=== PATIENT | male | born 1945 | race Two or more races ===

== ENCOUNTER 2016-08-16 22:54 | Inpatient (IN) | payer MEDICAID, MEDICARE ==
[~2016-08-16] VITALS: Ht 172.7 cm; Wt 88.9 kg
--- NOTE | 2016-08-16 23:07 | NUR ---
PT A/OX4 BREATHING EFFORTLESSLY ON ROOM AIR, PT STATES HE STARTED HAVING CHEST PAIN 35 MINUTES AGO, PT WAS GIVEN 162MG OF ASPIRIN AND 3 SPRAYS OF NITRO PRIOR TO ARRIVAL, PT ALSO STATES HE TOOK 4 BABY ASPIRIN PRIOR TO EMS, PT FAMILY AT BEDSIDE, PT STATES THE PAIN IS NOW A 2 OUT OF 10, EKG DONE, IOV PLACED PRIRO TO ARRIVAL LABS DRAWN, MD MADE AWARE WILL CONTINUE TO MONTIOR.
[2016-08-16 23:29] LABS: BASOPHILS % (AUTO) 0.3 % (0.0-2.0); EOSINOPHILS # (AUTO) 0.1 /CMM (0.0-0.7); EOSINOPHILS % (AUTO) 0.5 % (0.0-6.0); HEMATOCRIT 47 % (39-51); HEMOGLOBIN 15.3 g/dL (13.5-17.5); LYMPHOCYTES # (AUTO) 0.7 /CMM (0.8-4.8); LYMPHOCYTES % (AUTO) 4.4 % (20.0-44.0); MEAN CORPUSCULAR HEMOGLOBIN 29 PG (26.0-33.0); MEAN CORPUSCULAR HGB CONC 33 g/dl (31.0-36.0); MEAN CORPUSCULAR VOLUME 87 fL (80-96); MONOCYTES # (AUTO) 0.8 /CMM (0.1-1.30); MONOCYTES % (AUTO) 5.6 % (2.0-12.0); NEUTROPHILS # (AUTO) 13.5 /CMM (1.8-8.9); NEUTROPHILS % (AUTO) 89.2 % (43.0-81.0); PLATELET COUNT (AUTO) 178 /CMM (150-450); RED BLOOD CELL COUNT(AUTO) 5.39 MIL/uL (4.5-6.0); WHITE BLOOD COUNT (AUTO) 15.1 K/uL (4.3-11.0)
[2016-08-16 23:40] LABS: CALCIUM, SERUM 9.5 mg/dL (8.5-10.1); CARBON DIOXIDE 29 mmol/L (21-32); CHLORIDE 101 mmol/L (98-107); CREATININE 1.1 mg/dL (0.6-1.3); GFR 67 mL/min (>60); GLUCOSE 301 mg/dL (74-106); POTASSIUM 4.3 mmol/L (3.5-5.1); SODIUM SERUM 136 mmol/L (136-145); UREA NITROGEN, BLOOD 20 mg/dL (7-18)
[2016-08-16 23:43] LABS: INR 1.06 (0.87-1.13); PROTHROMBIN TIME 11.4 SECS (9.5-12.7)
[2016-08-16 23:47] LABS: TROPONIN I < 0.017 ng/mL (0.00-0.056)
[2016-08-16] MEDS ORDERED: GLIM4TAB2 PO (23:53)
[2016-08-16] MEDS ORDERED: MONT10TA22 PO (23:53)
[2016-08-16] MEDS ORDERED: SENN8.6T22 PO (23:53)
[2016-08-16] MEDS ORDERED: ALPR0.5T8 PO (23:53)
[2016-08-16] MEDS ORDERED: METF500T4 PO (23:53)
[2016-08-16] MEDS ORDERED: SITA50TA PO (23:53)
[2016-08-16] MEDS ORDERED: LORA10TA7 PO (23:53)
[2016-08-16] MEDS ORDERED: CALC-838 PO (23:53)
[2016-08-16] MEDS ORDERED: ATOR20TA PO (23:53)
[2016-08-16] MEDS ORDERED: LISI10TA5 PO (23:53)
[2016-08-16 23:55] LABS: ALANINE AMINOTRANSFERASE 33 U/L (12-78); ALBUMIN 4.1 g/dL (3.4-5.0); ALKALINE PHOSPHATASE 80 U/L (46-116); ASPARTATE AMINOTRANSFERASE 16 U/L (15-37); B-TYPE NATRIURETIC PEPTIDE 28 PG/ML (0-125); BILIRUBIN,DIRECT 0.2 mg/dL (0.0-0.2); BILIRUBIN,TOTAL 1.2 mg/dL (0.2-1.0); TOTAL PROTEIN, SERUM 7.3 g/dL (6.4-8.2)
[2016-08-17] MEDS ORDERED: IV NS 0.9% 1,000 ML IV PRN (00:32)
[2016-08-17 01:00] VITALS: BP 135/69
[2016-08-17] MEDS ORDERED: *INSULIN REGULAR(HUMULIN R)HUM 100 UNIT/ML VIAL SQ PRN (01:00)
[2016-08-17] MEDS ORDERED: Z GUARD REMEDY 2 OZ OINT TP PRN (01:00)
[2016-08-17] MEDS ORDERED: MORPHINE SULFATE INJ 2 MG/ML DISP.SYRIN IV PRN (01:00)
[2016-08-17] MEDS ORDERED: ONDANSETRON HCL/PF 4 MG/2 ML VIAL IVP PRN (01:00)
[2016-08-17] MEDS ORDERED: ENOXAPARIN SODIUM 40 MG/0.4 ML DISP.SYRIN SQ SCH ×2 (01:00→06:56)
[2016-08-17] MEDS ORDERED: ACETAMINOPHEN 325 MG TABLET PO PRN (01:00)
[2016-08-17] MEDS ORDERED: MAG HYDROX/AL HYDROX/SIMETH 30 ML UDC PO PRN (01:00)
[2016-08-17] MEDS ORDERED: ZOLPIDEM TARTRATE 5 MG TABLET PO PRN (01:00)
[2016-08-17] MEDS ORDERED: MAGNESIUM HYDROXIDE 30 ML UDC PO PRN (01:00)
[2016-08-17] MEDS ORDERED: HYDROCODONE/APAP 5/325MG 1 EACH TABLET PO PRN (01:00)
[2016-08-17] MEDS ORDERED: INSULIN REGULAR, HUMAN 100 UNIT/ML 3 ML VIAL SQ PRN (01:00)
[2016-08-17] MEDS ORDERED: DEXTROSE 50%-WATER 50 ML DISP.SYRIN IV PRN (01:00)
[2016-08-17] MEDS ORDERED: IV NS 0.9% 1,000 ML ONE (01:09)
[2016-08-17] MEDS ORDERED: ENOXAPARIN SODIUM 40 MG/0.4 ML DISP.SYRIN SQ ONE (01:09)
[2016-08-17] MEDS ORDERED: IV SET PRIMARY PUMP SET 1 EA INFUS.SET MC ONE (01:09)
[2016-08-17] MEDS ORDERED: BELLADONNA /PHENOBARB 5 ML UDC 5 ML UDC PO PRN (02:30)
[2016-08-17] MEDS ORDERED: LIDOCAINE VISCOUS 2% UD 15 ML UDC MM ONE (02:30)
[2016-08-17] MEDS ORDERED: MAG HYDROX/AL HYDROX/SIMETH 30 ML UDC PO ONE (02:30)
[2016-08-17] MEDS ORDERED: BELLADONNA /PHENOBARB 5 ML UDC 5 ML UDC PO ONE (02:30)
[2016-08-17] MEDS ORDERED: LIDOCAINE VISCOUS 2% UD 15 ML UDC ONE (02:35)
[2016-08-17] MEDS ORDERED: MAG HYDROX/AL HYDROX/SIMETH 30 ML UDC ONE (02:38)
[2016-08-17 04:00] VITALS: BP 101/57
[2016-08-17] MEDS ORDERED: ACETAMINOPHEN 325 MG TABLET ONE (05:13)
--- NOTE | 2016-08-17 05:17 | NUR ---
MS RN NOTES PT'S TEMP 101.2. TYLENOL GIVEN ORDERED. WILL CONTINUE TO MONITOR
--- NOTE | 2016-08-17 06:30 | NUR ---
MS RN NOTES AWAKE & RESPONSIVE. NOT IN ANY DISTRESS. NO SOB NOTED. AFEBRILE. DENIES ANY PAIN OR DISCOMFORT AT THIS TIME. WITH IVF INFUSING WELL. AM CARE DONE. MONITORED ACCORDINGLY. CALL LIGHT WITHIN REACH. BED IN LOWEST POSITION. SR UP X 2 FOR SAFETY. WILL ENDORSE TO NEXT SHIFT.
[2016-08-17] MEDS ORDERED: PANTOPRAZOLE 40 MG TABLET.DR PO SCH (07:30)
--- NOTE | 2016-08-17 07:30 | NUR ---
RN INITIAL NOTES PT IS IN BED, AOX4, HOB OF ELEVATED 35 DEGREES, FAMILY AT BEDSIDE, ON TELE MONITOR, SR 69, PT DENIES OF CHEST PAIN. ON NASAL CANNULA 2L, NO SOB. PT IS AMBULATORY, STEADY GAIT, BRP. SKIN IS CDI. IV ON LAC 18G, RUNNING NS AT 75ML/HR CDI NO S/SX OF INFECTION/INFILTRATION. PT IS ON CARDIAC DIET BUT HAS BEEN KEPT NPO SINCE MIDNIGHT FOR POSSIBLE STRESS IN AM, WILL FOLLOW UP WITH MD. CALL WITHIN EASY REACH, SAFETY MEASURES MAINTAINED, WILL CONTINUE TO MONITOR AND FOLLOW MD ORDERS. PT IS IN OVERALL STABLE CONDITION.
[2016-08-17 08:00] VITALS: BP 122/57
[2016-08-17] MEDS ORDERED: LORATADINE 10 MG TABLET PO SCH (09:00)
[2016-08-17] MEDS ORDERED: SENNOSIDES 8.6 MG TABLET PO SCH (09:00)
[2016-08-17] MEDS ORDERED: CHOLECALCIFEROL 1,000 UNIT TABLET (VIT D3) PO SCH (09:00)
[2016-08-17] MEDS ORDERED: MONTELUKAST SODIUM (10MG) 10 MG TABLET PO SCH (09:00)
[2016-08-17] MEDS ORDERED: CARVEDILOL 6.25 MG TABLET PO SCH (09:00)
[2016-08-17] MEDS ORDERED: LISINOPRIL (10MG) 10 MG TABLET PO SCH (09:00)
[2016-08-17] MEDS ORDERED: ALPRAZOLAM 0.5 MG TABLET PO SCH (09:00)
[2016-08-17] MEDS ORDERED: ATORVASTATIN 10 MG TABLET PO SCH (09:00)
[2016-08-17] MEDS: BLOOD SUGAR DIAGNOSTIC 1 EACH STRIP VI SCH ×2 (09:03→13:07)
--- NOTE | 2016-08-17 09:06 | NUR ---
RN NOTES PT AND PTS DAUGHTER WANT HIM TO PT DISCHARGE SOON POSSIBLE D/T [place] EVENT TONIGHT. THEY WANTED THE STRESS TEST TO BE COMPLETED TODAY, CONTACTED DR. MCNEIL AND HE STATED THAT THE STRESS TEST HAS TO BE DONE YOGESH. BECAUSE PT HAD TAKEN A MEDICATION DURING THE NIGHT. DR. MCNEIL WAS OKAY WITH PT HAVING THE STRESS TEST BEING DONE OUTPATIENT WITH HIS PMD; FAMILY AND PT AGREE TO OUTPATIENT STRESS TEST. PER DR. MCNEIL HE WANTS TO CHECK THE RESULTS OF TROPONIN. FAMILY AWARE.
--- NOTE | 2016-08-17 10:34 | NUR ---
RN NOTES PTS DAUGHTER STATED THAT PT HAS VERY LITTLE CHEST DISCOMFORT, PT IS SLEEPING AT THE MOMENT, DAUGHTER STATED IT WAS TOLERABLE DISCOMFORT. YOLANDA RUIZ AWARE PT WILL BE DISCHARGE WITH NITRO IF HE LEAVES TODAY.
--- NOTE | 2016-08-17 11:26 | NUR ---
RN NOTES CONTACTED DR. MCNEIL TO DO TROPIN NOW INSTEAD OF 1430, AGREED.
[2016-08-17 12:00] VITALS: BP 119/80
[2016-08-17] MEDS ORDERED: CARV6.252 PO (12:43)
[2016-08-17] MEDS ORDERED: AZIT1PAC8 PO (12:43)
[2016-08-17] MEDS ORDERED: ASPI81TA2 PO (12:43)
[2016-08-17] MEDS ORDERED: NITR0.4T6 SL (12:55)
[2016-08-17] MEDS ORDERED: PANT40TA2 PO (13:11)
--- NOTE | 2016-08-17 13:50 | NUR ---
RN CLOSING NOTES PATIENT HAS DISCHARGE PACKET, ALL PAPER SIGNED, PT VERBALIZED THEY HAVE ALL BELONGINGS. REMOVED IV, CDI, NO S/SX OF INFECTIONS. REMOVED ID BANDS AND TELE BOX. PRESCRIPTIONS X2 GIVEN TO PT. PT DISCHARGED IN STABLE CONDITIONS, EXPLAINED ALL MD ORDERS, AND TO FOLLOW UP WITH PCP REGARDING STRESS TEST AND LAB WORK. PT WAS ESCORTED OUT SAFELY TO PRIVATE CAR WITH DAUGHTER. ALL MD ORDERS CARRIED OUT AND PT VERBALIZES HE FEELS FINE.
[2016-08-17 13:58] LABS: CHOLESTEROL 121 mg/dL (<200); HDL CHOLESTEROL 41 mg/dL (40-60); LDL 68 mg/dL (0-99); TRIGLYCERIDES 164 mg/dL (30-150)
[2016-08-18] MEDS ORDERED: REGADENOSON 0.4 MG/5 ML DISP.SYRIN IVP ONE (08:00)
== END 2016-08-17 13:15 | disposition home or self-care (01) | DRG 203 ==
LOC: ER 22:56 → TELE1 08-17 00:48
PROVIDERS: ADMIT Internal Medicine; ATTEND Internal Medicine
DX: M94.0 Chondrocostal junction syndrome [Tietze] (principal); J90 Pleural effusion, not elsewhere classified; K27.9 Peptic ulcer, site unspecified, unspecified as acute or chronic, without hemorrhage or perforation; D72.829 Elevated white blood cell count, unspecified; I10 Essential (primary) hypertension; E11.9 Type 2 diabetes mellitus without complications; E78.00 Pure hypercholesterolemia, unspecified; E78.5 Hyperlipidemia, unspecified; F41.9 Anxiety disorder, unspecified
CPT/HCPCS: 36415; 71010-TC; 80048-TC; 80061-TC; 80076-TC; 82962-TC; 83880; 84484-TC; 85025-TC; 85730-TC; 87081-TC; 93307-TC; 94799-TC; A4606; J1650; J1815; J7030; Z7610

== ENCOUNTER 2016-08-21 17:25 | Inpatient (IN) | payer MEDICAID, MEDICARE ==
[~2016-08-21] VITALS: Ht 172.7 cm; Wt 86.7 kg
[~2016-08-21 17:25] MED LIST: ALPR0.5T8 PO; ASPI81TA2 PO; ATOR20TA PO; AZIT1PAC8 PO; CALC-838 PO; CARV6.252 PO; GLIM4TAB2 PO; LISI10TA5 PO; LORA10TA7 PO; METF500T4 PO; MONT10TA22 PO; NITR0.4T6 SL; PANT40TA2 PO; SENN8.6T22 PO; SITA50TA PO
[2016-08-21 17:42] LABS: BASOPHILS # (AUTO) 0.1 /CMM (0.0-0.2); BASOPHILS % (AUTO) 0.7 % (0.0-2.0); EOSINOPHILS # (AUTO) 0.1 /CMM (0.0-0.7); EOSINOPHILS % (AUTO) 1.6 % (0.0-6.0); HEMATOCRIT 49 % (39-51); HEMOGLOBIN 16.4 g/dL (13.5-17.5); LYMPHOCYTES # (AUTO) 1.1 /CMM (0.8-4.8); LYMPHOCYTES % (AUTO) 12.3 % (20.0-44.0); MEAN CORPUSCULAR HEMOGLOBIN 29 PG (26.0-33.0); MEAN CORPUSCULAR HGB CONC 34 g/dl (31.0-36.0); MEAN CORPUSCULAR VOLUME 86 fL (80-96); MONOCYTES # (AUTO) 1.2 /CMM (0.1-1.30); MONOCYTES % (AUTO) 12.5 % (2.0-12.0); NEUTROPHILS # (AUTO) 6.8 /CMM (1.8-8.9); NEUTROPHILS % (AUTO) 72.9 % (43.0-81.0); PLATELET COUNT (AUTO) 219 /CMM (150-450); RDW COEFFICIENT OF VARIATION 12.6 (11.5-15.0); RED BLOOD CELL COUNT(AUTO) 5.66 MIL/uL (4.5-6.0); WHITE BLOOD COUNT (AUTO) 9.3 K/uL (4.3-11.0)
[2016-08-21 17:56] LABS: INR 1.03 (0.87-1.13); PROTHROMBIN TIME 10.7 SECS (9.5-12.7)
[2016-08-21] MEDS ORDERED: DILTIAZEM HCL 25 MG IV ONE ×2 (17:56)
[2016-08-21] MEDS ORDERED: IV SET PRIMARY 1 EA INFUS.SET MC ONE (17:56)
[2016-08-21] MEDS ORDERED: IV NS 0.9% 1,000 ML ONE (17:56)
[2016-08-21 17:59] LABS: TROPONIN I 0.289 ng/mL (0.00-0.056)
[2016-08-21] MEDS ORDERED: IV NS 0.9% 1,000 ML BAG IV ONE (18:00)
[2016-08-21] MEDS ORDERED: DILTIAZEM HCL 50 MG IV IV ONE ×2 (18:00→18:30)
[2016-08-21 18:03] LABS: ALBUMIN 3.5 g/dL (3.4-5.0); BILIRUBIN,DIRECT 0.2 mg/dL (0.0-0.2); BILIRUBIN,TOTAL 0.8 mg/dL (0.2-1.0); CALCIUM, SERUM 9.9 mg/dL (8.5-10.1); CREATININE 1.2 mg/dL (0.6-1.3); POTASSIUM 4.5 mmol/L (3.5-5.1); TOTAL PROTEIN, SERUM 7.4 g/dL (6.4-8.2)
[2016-08-21] MEDS ORDERED: AZIT250T6 PO (18:27)
[2016-08-21] MEDS ORDERED: BUDE10.2 INH (18:27)
[2016-08-21] MEDS ORDERED: ESOM40CA PO (18:27)
[2016-08-21] MEDS ORDERED: ASPI-991 PO (18:27)
[2016-08-21] MEDS ORDERED: NITR0.4T6 SL (18:27)
[2016-08-21] MEDS ORDERED: HYDROCODONE/APAP 5/325MG 1 EACH TABLET PO PRN (19:00)
[2016-08-21] MEDS ORDERED: MAG HYDROX/AL HYDROX/SIMETH 30 ML UDC PO PRN (19:00)
[2016-08-21] MEDS ORDERED: ONDANSETRON HCL/PF 4 MG/2 ML VIAL IVP PRN (19:00)
[2016-08-21] MEDS ORDERED: Z GUARD REMEDY 2 OZ OINT TP PRN (19:00)
[2016-08-21] MEDS ORDERED: ACETAMINOPHEN 325 MG TABLET PO PRN (19:00)
[2016-08-21] MEDS ORDERED: MAGNESIUM HYDROXIDE 30 ML UDC PO PRN (19:00)
[2016-08-21] MEDS ORDERED: MORPHINE SULFATE INJ 2 MG/ML DISP.SYRIN IV PRN (19:00)
[2016-08-21] MEDS ORDERED: INSULIN REGULAR, HUMAN 100 UNIT/ML 3 ML VIAL SQ PRN ×2 (19:00→21:30)
[2016-08-21] MEDS ORDERED: ZOLPIDEM TARTRATE 5 MG TABLET PO PRN (19:00)
[2016-08-21] MEDS ORDERED: ENOXAPARIN SODIUM 40 MG/0.4 ML DISP.SYRIN SQ SCH (19:00)
[2016-08-21] MEDS ORDERED: DEXTROSE 50%-WATER 50 ML DISP.SYRIN IV PRN ×2 (19:00→21:30)
--- NOTE | 2016-08-21 19:24 | NUR ---
PT REPORT RECIEVED FROM AMINTA RN, PT ON MONITOR, FAMILY AT BEDSIDE, PT STATES HE IS FEELING BETTER, WILL CONTINUE TO MONITOR.
--- NOTE | 2016-08-21 19:50 | NUR ---
RN INITIAL NOTE: NEW ADMISSION. PT CAME FROM ER @1950. PT CAME FROM MD OFFICE COMPLAINING OF PALPITATIONS. DX AFIB W/RVR. HX OF HTN, AFIB, ANXIETY, DM, HYPERLIPIDEMIA, AND TONSILLECTOMY. PT IS ALLERGIC TO PENICILLIN. PT ON 2L NC, TOLERATING WELL. PT IS A/OX3 SR 69. PT DENIES PAIN. PT CAN AMBULATE W/ ASSISTANCE. IV SITES: LFA 18G HL/INTACT/FLUSHED/PATENT. RAC 20G HL/INTACT/FLUSHED/PATENT. CXR SHOWS MILD CARDIOMEGALY, TROP: 0.289 PT IS CURRENT STABLE FAMILY AT BEDSIDE. CALL LIGHT WITHIN REACH AND INSTRUCTION GIVEN. WILL CONTINUE TO MONITOR AND FOLLOW MD ORDERS..
[2016-08-21 20:00] VITALS: BP 98/71
[2016-08-21 20:22] VITALS: BP 98/71
[2016-08-21] MEDS: BLOOD SUGAR DIAGNOSTIC 1 EACH STRIP IN SCH (21:33)
[2016-08-21] MEDS: *INSULIN REGULAR(HUMULIN R)HUM 100 UNIT/ML VIAL SQ PRN (21:46)
[2016-08-21] MEDS ORDERED: BLOOD SUGAR DIAGNOSTIC 1 EACH STRIP IN SCH (22:00)
[2016-08-21] MEDS ORDERED: NITROGLYCERIN 0.4 MG/TAB BOTTLE SL SCH (22:00)
[2016-08-22] VITALS: BP 101/66
[2016-08-22 04:00] VITALS: BP 123/74
[2016-08-22] MEDS: BLOOD SUGAR DIAGNOSTIC 1 EACH STRIP IN SCH ×4 (06:33→22:00)
[2016-08-22] MEDS: INSULIN REGULAR, HUMAN 100 UNIT/ML 3 ML VIAL SQ PRN ×3 (06:34→17:23)
[2016-08-22 06:56] LABS: BASOPHILS % (AUTO) 0.6 % (0.0-2.0); EOSINOPHILS # (AUTO) 0.2 /CMM (0.0-0.7); HEMATOCRIT 44 % (39-51); HEMOGLOBIN 14.4 g/dL (13.5-17.5); LYMPHOCYTES # (AUTO) 1.4 /CMM (0.8-4.8); LYMPHOCYTES % (AUTO) 20.6 % (20.0-44.0); MEAN CORPUSCULAR HEMOGLOBIN 28 PG (26.0-33.0); MEAN CORPUSCULAR HGB CONC 33 g/dl (31.0-36.0); MEAN CORPUSCULAR VOLUME 86 fL (80-96); MONOCYTES # (AUTO) 1.1 /CMM (0.1-1.30); MONOCYTES % (AUTO) 16.3 % (2.0-12.0); NEUTROPHILS # (AUTO) 3.9 /CMM (1.8-8.9); NEUTROPHILS % (AUTO) 59.5 % (43.0-81.0); PLATELET COUNT (AUTO) 218 /CMM (150-450); RDW COEFFICIENT OF VARIATION 13.7 (11.5-15.0); RED BLOOD CELL COUNT(AUTO) 5.06 MIL/uL (4.5-6.0); WHITE BLOOD COUNT (AUTO) 6.6 K/uL (4.3-11.0)
--- NOTE | 2016-08-22 07:17 | NUR ---
RN CLOSING NOTES: PT. IS STABLE. VSS. A/O X3 ON TELE SR 62. PT DENIES PAIN, NO S/S OF DISTRESS. IV SITES CLEAN DRY AND INTACT W/NO S/S INFILTRATION. PT IS COMFORTABLE, BED IN LOW/LOCKED POSITION WITH SIDE RAILS UP. ALL MD ORDERS FOLLOWED, ALL SAFETY MEASURES FOLLOWED. FAMILY AT BEDSIDE AT ALL TIMES. PT HAS BEEN ENDORSED TO AM SHIFT TO CONTINUE CARE AND TO FOLLOW MD ORDERS.
--- NOTE | 2016-08-22 07:20 | NUR ---
RN INITIAL NOTES: Received patient on bed during rounds, awake, alert and oriented x3-4, able to make needs known, call lights placed within reached, instructed patient to press call light when in need any assistance, needs anticipated and attended. No Chestpain and discomfort noted. With RAC G20 and LFA G18 flushed with NS and patent SL. Patient encouraged and able to do self-care. NO SOB, No LOC, respirations are even and unlabored, no acute distress noted. Kept clean and dry. Provided safety and comfort measures. Bed low and locked position, fall precaution observed. To continue to monitor accordingly.
[2016-08-22 07:26] LABS: BILIRUBIN,TOTAL 0.9 mg/dL (0.2-1.0); CALCIUM, SERUM 8.9 mg/dL (8.5-10.1); MAGNESIUM 1.7 mg/dL (1.8-2.4); PHOSPHORUS 4.3 mg/dL (2.5-4.9); POTASSIUM 4.4 mmol/L (3.5-5.1); TOTAL PROTEIN, SERUM 6.5 g/dL (6.4-8.2)
[2016-08-22 07:28] LABS: THYROID STIMULATING HORMONE 1.435 uIU/mL (0.358-3.74)
[2016-08-22 08:00] VITALS: BP 112/71
[2016-08-22] MEDS: PANTOPRAZOLE 40 MG TABLET.DR PO SCH (08:23)
[2016-08-22] MEDS: GLIMEPIRIDE 4 MG TABLET PO SCH (08:46)
[2016-08-22] MEDS: MONTELUKAST SODIUM (10MG) 10 MG TABLET PO SCH (08:47)
[2016-08-22] MEDS: ASPIRIN EC 81 MG TABLET.DR PO SCH (08:47)
[2016-08-22] MEDS: METFORMIN 500 MG TABLET PO SCH ×3 (08:47→17:17)
[2016-08-22] MEDS: SITAGLIPTIN PHOSPHATE 50 MG TABLET PO SCH (08:47)
[2016-08-22] MEDS: LISINOPRIL (10MG) 10 MG TABLET PO SCH (08:48)
[2016-08-22] MEDS: ALPRAZOLAM 0.5 MG TABLET PO SCH (08:53)
[2016-08-22] MEDS: ATORVASTATIN 10 MG TABLET PO SCH (08:53)
[2016-08-22] MEDS ORDERED: IV SET PRIMARY PUMP SET 1 EA INFUS.SET MC ONE (10:55)
[2016-08-22] MEDS: Magnesium 1GM/D5W 100ML PREMIX 100 ML IV SCH ×2 (11:08→12:34)
[2016-08-22] MEDS: DRONEDARONE HYDROCHLORIDE 400 MG TABLET PO SCH ×2 (11:08→17:17)
[2016-08-22 12:00] VITALS: BP 124/82
--- NOTE | 2016-08-22 12:05 | NUR ---
RN NOTES: Referred to Dr. South Bates, patient has 1 more dose of Azithromycin 250mgs to complete the coarse of treatment outpatient, as per MD spann to order above referral. Addendum: 08/22/16 at 1324 by SARANYA ADORNO RN RN NOTES: Referred to Dr. South Bates, patient has 1 more dose of Azithromycin 250mgs to complete the course of treatment outpatient, as per MD zana clay order above referral
[2016-08-22 12:28] LABS: EOSINOPHILS % (MANUAL) 2 % (0-4); LYMPHOCYTES % (MANUAL) 26 % (16-48); MONOCYTES % (MANUAL) 9 % (0-11.0); NEUTROPHILS % (MANUAL) 63 (42-76)
[2016-08-22 12:29] LABS: PLATELET ESTIMATE ADEQUATE
[2016-08-22] MEDS ORDERED: AZITHROMYCIN 250 MG TABLET PO ONE (12:30)
[2016-08-22 16:00] VITALS: BP 111/74
[2016-08-22] MEDS ORDERED: RIVAROXABAN 10 MG TABLET PO SCH (17:00)
[2016-08-22] MEDS: FLUTICASONE/SALMETEROL DISKUS IH SCH (17:17)
--- NOTE | 2016-08-22 18:50 | NUR ---
RN NOTES: Patient remained stable within shift, no signs and symptoms of distress noted. No chest pain or discomfort noted. Instructed patient No coffee, no tea, NPO after 12midnight, going for NM Myocardial Stress test in am consent taken. Made comfortable in bed. provided safety and comfort. To endorsed to next shift for continuity of care.
[2016-08-22 20:00] VITALS: BP 125/63
--- NOTE | 2016-08-22 20:00 | NUR ---
Received patient awake alert and oriented x 3.VS stable.Respiration even and unlabored. SPO2 96% on RA.SR 79 per monitor.Hemodynamically stable.Denies chest pain or sob. Plan of care discussed with patient.Verbalized understanding.No tea or coffee.NPO post MN reinforced.For Myocardial Perfusion stress test in AM.Safety checked.Call light at bedside with instructions.Family at bedside.
[2016-08-22] MEDS: *INSULIN REGULAR(HUMULIN R)HUM 100 UNIT/ML VIAL SQ PRN (22:02)
[2016-08-23] VITALS: BP 115/69
[2016-08-23 04:00] VITALS: BP 108/71
[2016-08-23] MEDS: BLOOD SUGAR DIAGNOSTIC 1 EACH STRIP IN SCH ×2 (06:49→12:26)
--- NOTE | 2016-08-23 06:54 | NUR ---
Patient resting.VS stable.SR 80's per monitor.Remains asymptomatic.NPO post MN observed.BS 215.No coverage given for Myocardial perfusion stress today. All needs attended.
[2016-08-23 08:00] VITALS: BP 116/74
[2016-08-23] MEDS ORDERED: REGADENOSON 0.4 MG/5 ML DISP.SYRIN IVP ONE (08:00)
[2016-08-23] MEDS: SITAGLIPTIN PHOSPHATE 50 MG TABLET PO SCH (09:00)
[2016-08-23] MEDS: GLIMEPIRIDE 4 MG TABLET PO SCH (09:00)
[2016-08-23] MEDS: METFORMIN 500 MG TABLET PO SCH ×2 (09:00→12:38)
[2016-08-23] MEDS: PANTOPRAZOLE 40 MG TABLET.DR PO SCH (09:16)
[2016-08-23 09:17] VITALS: BP 116/74
[2016-08-23] MEDS: ATORVASTATIN 10 MG TABLET PO SCH (09:17)
[2016-08-23] MEDS: FLUTICASONE/SALMETEROL DISKUS IH SCH (09:17)
[2016-08-23] MEDS: ALPRAZOLAM 0.5 MG TABLET PO SCH (09:17)
[2016-08-23] MEDS: LISINOPRIL (10MG) 10 MG TABLET PO SCH (09:17)
[2016-08-23] MEDS: ASPIRIN EC 81 MG TABLET.DR PO SCH (09:17)
[2016-08-23] MEDS: MONTELUKAST SODIUM (10MG) 10 MG TABLET PO SCH (09:18)
[2016-08-23] MEDS: DRONEDARONE HYDROCHLORIDE 400 MG TABLET PO SCH (09:18)
[2016-08-23] MEDS: INSULIN REGULAR, HUMAN 100 UNIT/ML 3 ML VIAL SQ PRN ×2 (09:29→12:32)
--- NOTE | 2016-08-23 10:53 | NUR ---
MS RN NOTE Pt left for lexiscan around 0730. Pt requested RN to check BG, BG 255 at 0900, pt requested sliding scale insulin and refused scheduled diabetes medication, insulin given. Now on cardiac diet. Acuity decreased from tele to med-surg, pt was SR on monitor. Will cont to monitor.
--- NOTE | 2016-08-23 14:47 | NUR ---
DISCHARGE NOTE Pt safely discharged with family. Discharge instructions discussed with pt and daughter, gave Dr. Arriaza's number to acquire number for outpatient aircraft mechanic. IV sites removed. Stable for discharge.
== END 2016-08-23 16:43 | disposition home or self-care (01) | DRG 201 ==
LOC: ER 17:28 → TELE1 19:37 → MEDSG1 08-23 10:58
PROVIDERS: ADMIT Family Medicine; ATTEND Family Medicine
DX: I48.91 Unspecified atrial fibrillation (principal); I21.4 Non-ST elevation (NSTEMI) myocardial infarction; E11.65 Type 2 diabetes mellitus with hyperglycemia; F41.9 Anxiety disorder, unspecified; F32.9 Major depressive disorder, single episode, unspecified; J45.909 Unspecified asthma, uncomplicated; E78.5 Hyperlipidemia, unspecified; Z79.84 Long term (current) use of oral hypoglycemic drugs; I10 Essential (primary) hypertension
CPT/HCPCS: 36415; 71010-TC; 80048-TC; 80053-TC; 80061-TC; 80076-TC; 82962-TC; 83735-TC; 84100-TC; 84443-TC; 84484-TC; 85025-TC; 85730-TC; A4606; A9502; J1650; J1815; J2785; J3475; J3490; J7030; Z7610

== ENCOUNTER 2016-08-30 11:47 | Inpatient (IN) | payer MEDICAID, MEDICARE ==
[~2016-08-30] VITALS: Ht 167.6 cm; Wt 86.6 kg
[~2016-08-30 11:47] MED LIST changes: +ASPI-991 PO; -ASPI81TA2 PO; -AZIT1PAC8 PO; +AZIT250T6 PO; +BUDE10.2 INH; -CALC-838 PO; -CARV6.252 PO; +ESOM40CA PO; -LORA10TA7 PO; -PANT40TA2 PO; -SENN8.6T22 PO
--- NOTE | 2016-08-30 11:47 | NUR ---
bbfamily from home for chest pain since 8 am. nad noted. pt aao x4, amb with steady gait. pt describes 12/04, non radiating. pt placed in gown and monitor. ekg at bedside. awaiting md for eval.
[2016-08-30] MEDS ORDERED: ASPIRIN 81 MG TAB.CHEW PO ONE (12:00)
[2016-08-30 12:03] LABS: BASOPHILS # (AUTO) 0.1 /CMM (0.0-0.2); EOSINOPHILS % (AUTO) 0.3 % (0.0-6.0); HEMATOCRIT 48 % (39-51); HEMOGLOBIN 16.3 g/dL (13.5-17.5); LYMPHOCYTES # (AUTO) 0.5 /CMM (0.8-4.8); LYMPHOCYTES % (AUTO) 3.3 % (20.0-44.0); MEAN CORPUSCULAR HEMOGLOBIN 29 PG (26.0-33.0); MEAN CORPUSCULAR HGB CONC 34 g/dl (31.0-36.0); MEAN CORPUSCULAR VOLUME 85 fL (80-96); NEUTROPHILS # (AUTO) 13.2 /CMM (1.8-8.9); NEUTROPHILS % (AUTO) 88.4 % (43.0-81.0); PLATELET COUNT (AUTO) 284 /CMM (150-450); RDW COEFFICIENT OF VARIATION 12.7 (11.5-15.0); RED BLOOD CELL COUNT(AUTO) 5.62 MIL/uL (4.5-6.0); WHITE BLOOD COUNT (AUTO) 14.8 K/uL (4.3-11.0)
[2016-08-30] MEDS ORDERED: ASPIRIN 81 MG TAB.CHEW ONE (12:05)
[2016-08-30 12:14] LABS: CALCIUM, SERUM 9.5 mg/dL (8.5-10.1); CARBON DIOXIDE 29 mmol/L (21-32); CHLORIDE 96 mmol/L (98-107); CREATININE 1.2 mg/dL (0.6-1.3); GFR 60 mL/min (>60); GLUCOSE 297 mg/dL (74-106); POTASSIUM 4.5 mmol/L (3.5-5.1); SODIUM SERUM 132 mmol/L (136-145); UREA NITROGEN, BLOOD 22 mg/dL (7-18)
[2016-08-30 12:17] LABS: INR 1.07 (0.87-1.13); PROTHROMBIN TIME 11.1 SECS (9.5-12.7)
[2016-08-30 12:23] LABS: TROPONIN I < 0.017 ng/mL (0.00-0.056)
[2016-08-30] MEDS ORDERED: IV NS 0.9% 1,000 ML BAG IV ONE (12:30)
[2016-08-30] MEDS ORDERED: INSULIN REGULAR, HUMAN 100 UNIT/ML 10 ML VIAL SQ ONE (12:30)
--- NOTE | 2016-08-30 12:30 | NUR ---
daughter at bedside. per daughter pt was to have an appointment with dr jones this sunday for ablation. aware.
[2016-08-30] MEDS ORDERED: IV SET PRIMARY PUMP SET 1 EA INFUS.SET MC ONE ×2 (12:32→16:31)
[2016-08-30] MEDS ORDERED: IV NS 0.9% 1,000 ML ONE (12:32)
--- NOTE | 2016-08-30 12:45 | NUR ---
dr rodriguez at bedside.
[2016-08-30] MEDS ORDERED: INSULIN REGULAR, HUMAN 100 UNIT/ML 10 ML VIAL ONE (12:50)
--- NOTE | 2016-08-30 13:20 | NUR ---
PAGED DR ASHER
--- NOTE | 2016-08-30 13:29 | NUR ---
CT ANGIO HEART WILL BE DONE SUNDAY AROUND 10 AM.
--- NOTE | 2016-08-30 13:34 | NUR ---
PATIENT ASSIGNED TO TELE 313-2 DX CHEST PAIN
--- NOTE | 2016-08-30 14:06 | NUR ---
REPORT GIVEN TO HI SCHNEIDER FOR LYUDMILA
[2016-08-30 14:30] VITALS: BP 105/69
--- NOTE | 2016-08-30 14:30 | NUR ---
CLASSIFICATION INSPECTOR NOTES RECEIVED PT FROM E.R. STAFF, AWAKE, ALERT AND ORIENTED, ACCOMPANIED BY DAUGHTER, ABLE TO AMBULATE TO BED, MADE COMFORTABLE, ROOM SET UP ORIENTATION PROVIDED, STILL WITH COMPLAINT OF SLIGHT CHEST PAIN 2/10, NO SOB, CALL LIGHT WITHIN REACH, AWAITING ADMITTING ORDERS FROM MD.
[2016-08-30] MEDS ORDERED: NITROGLYCERIN 0.4 MG/TAB BOTTLE SL PRN (15:30)
[2016-08-30] MEDS ORDERED: IV NS 0.9% 1,000 ML IV PRN (15:37)
[2016-08-30 16:00] VITALS: BP 110/70
[2016-08-30] MEDS ORDERED: ONDANSETRON HCL/PF 4 MG/2 ML VIAL IVP PRN (16:00)
[2016-08-30] MEDS ORDERED: ZOLPIDEM TARTRATE 5 MG TABLET PO PRN (16:00)
[2016-08-30] MEDS ORDERED: MAGNESIUM HYDROXIDE 30 ML UDC PO PRN (16:00)
[2016-08-30] MEDS ORDERED: ENOXAPARIN SODIUM 40 MG/0.4 ML DISP.SYRIN SQ SCH (16:00)
[2016-08-30] MEDS ORDERED: Z GUARD REMEDY 2 OZ OINT TP PRN (16:00)
[2016-08-30] MEDS ORDERED: DEXTROSE 50%-WATER 50 ML DISP.SYRIN IV PRN (16:00)
[2016-08-30] MEDS ORDERED: MAG HYDROX/AL HYDROX/SIMETH 30 ML UDC PO PRN (16:00)
[2016-08-30] MEDS ORDERED: *INSULIN REGULAR(HUMULIN R)HUM 100 UNIT/ML VIAL SQ PRN (16:00)
[2016-08-30] MEDS ORDERED: ACETAMINOPHEN 325 MG TABLET PO PRN (16:00)
[2016-08-30] MEDS ORDERED: CALC-838 PO (16:03)
--- NOTE | 2016-08-30 16:20 | NUR ---
HOSPITAL SECRETARY NOTES PT IN BED, AWAKE, ALERT AND ORIENTED, PT SEEN BY DR. ASHER, PLAN OF CARE DISCUSSED WITH PATIENT AND PT'S DAUGHTERS, VERBALIZED UNDERSTANDING, NEEDS ATTENDED.
[2016-08-30] MEDS: HYDROCODONE/APAP 5/325MG 1 EACH TABLET PO PRN ×2 (16:36→21:11)
[2016-08-30] MEDS ORDERED: Budesonide/Formoterol Fumarate (Symbicort 160-4.5 Mcg In INH SCH (17:00)
[2016-08-30] MEDS: BLOOD SUGAR DIAGNOSTIC 1 EACH STRIP VI SCH ×2 (17:11→21:20)
[2016-08-30] MEDS: INSULIN REGULAR, HUMAN 100 UNIT/ML 3 ML VIAL SQ PRN (17:23)
--- NOTE | 2016-08-30 18:05 | NUR ---
SCHOOL AGE PROGRAM ASSOCIATE NOTES PT IN BED, ASLEEP, EASY TO AROUSE, VERBALIZED RELIEF AFTER PAIN MED GIVEN FOR CHEST PAIN, NO COMPLAINT OF PAIN AT THIS TIME, RESPIRATIONS NORMAL, CALL LIGHT WITHIN REACH, IV FLUIDS INFUSING WELL, PT FOR CTA TOMORROW, PT AND FAMILY INFORMED, PM MEDS GIVEN, ALL NEEDS ATTENDED.
--- NOTE | 2016-08-30 19:15 | NUR ---
TELE MATERIALS DIRECTOR INITIAL NOTES CHECKED PT AFTER GOT REPORT FROM AM NURSE , PT AWAKE AND ALERT SITTING ON HIS BED WHILE TALKING TO HIS FAMILY. DX OF CHEST PAIN. PT STILL HAVE IVF OF NS AT 75ML/HR INFUSING ON HIS LEFT AC PATENT AND INTACT, NO REDNESS NOTED. PT AWARE OF HIS CT ANGIOGRAM AT 10 AM TOMORROW AND NPO AFTER MIDNIGHT. DENIES ANY CHEST PAIN AT THIS TIME. TELE SINUS RHYTHM HEART RATE 72 PER MONITOR. KEPT HIM COMFORTABLE AT ALL TIMES. PLACE CALL LIGHT AT REACH WILL CONTINUE TO MONITOR.
[2016-08-30 20:00] VITALS: BP 106/69
[2016-08-30] MEDS: FLUTICASONE/SALMETEROL DISKUS IH SCH (21:09)
[2016-08-31] VITALS: BP 112/74
--- NOTE | 2016-08-31 | NUR ---
CAMP MANAGER/NOTES PT SLEEPING COMFORTABLY IN BED WITHOUT ANY ACUTE DISTRESS NOTED. IVF STILL INFUSING . TELE SR WITH PVC'S . KEPT HIM COMFORTABLE AT ALL TIMES. WILL CONTINUE TO MONITOR. PLACE CALL LIGHT AT REACH.
[2016-08-31 04:00] VITALS: BP 125/77
[2016-08-31 04:30] VITALS: BP 125/77
--- NOTE | 2016-08-31 04:42 | NUR ---
TELE SUPERVISOR MULTIFOCAL LENS NOTES C/O CHEST PAIN RADIATING TO THE BACK BUT MANAGEABLE , VITAL SIGNS BP 125/77, PULSE 71, RESP 20, TEMP 98.8 AND 97% O2 SAT. SR WITH PVC'S HEART RATE 72 PER MONITOR. NITRO SL 0.4 MG GIVEN. KEPT HIM COMFORTABLE AT ALL TIMES. WILL CONTINUE TO MONITOR. PLACE CALL LIGHT AT REACH.
--- NOTE | 2016-08-31 06:02 | NUR ---
CHANNEL MARKETING SPECIALIST/NOTES CHECKED PT TO RE-ASSESSED THE PAIN , HE'S RESTING COMFORTABLY IB ED WITHOUT ANY ACUTE DISTRESS OR DISTRESS DISCOMFORT. KEPT HIM COMFORTABLE AT ALL TIMES. IVF STILL INFUSING., TELE SR PER MONITOR. WILL CONTINUE TO MONITOR. PLACE CALL LIGHT AT REACH.
[2016-08-31 06:17] LABS: BASOPHILS # (AUTO) 0.1 /CMM (0.0-0.2); BASOPHILS % (AUTO) 0.7 % (0.0-2.0); EOSINOPHILS # (AUTO) 0.1 /CMM (0.0-0.7); EOSINOPHILS % (AUTO) 1.4 % (0.0-6.0); HEMATOCRIT 41 % (39-51); HEMOGLOBIN 13.8 g/dL (13.5-17.5); LYMPHOCYTES # (AUTO) 1.1 /CMM (0.8-4.8); LYMPHOCYTES % (AUTO) 14.3 % (20.0-44.0); MEAN CORPUSCULAR HEMOGLOBIN 29 PG (26.0-33.0); MEAN CORPUSCULAR HGB CONC 34 g/dl (31.0-36.0); MEAN CORPUSCULAR VOLUME 86 fL (80-96); MONOCYTES # (AUTO) 1.1 /CMM (0.1-1.30); MONOCYTES % (AUTO) 14.5 % (2.0-12.0); NEUTROPHILS # (AUTO) 5.1 /CMM (1.8-8.9); NEUTROPHILS % (AUTO) 69.1 % (43.0-81.0); PLATELET COUNT (AUTO) 241 /CMM (150-450); RDW COEFFICIENT OF VARIATION 13.4 (11.5-15.0); RED BLOOD CELL COUNT(AUTO) 4.76 MIL/uL (4.5-6.0); WHITE BLOOD COUNT (AUTO) 7.4 K/uL (4.3-11.0)
[2016-08-31] MEDS: BLOOD SUGAR DIAGNOSTIC 1 EACH STRIP VI SCH ×3 (06:32→16:55)
[2016-08-31 07:05] LABS: CALCIUM, SERUM 8.7 mg/dL (8.5-10.1); CREATININE 0.9 mg/dL (0.6-1.3); MAGNESIUM 1.7 mg/dL (1.8-2.4); PHOSPHORUS 3.3 mg/dL (2.5-4.9); POTASSIUM 4.2 mmol/L (3.5-5.1)
[2016-08-31] MEDS ORDERED: PANTOPRAZOLE 40 MG TABLET.DR PO SCH (07:30)
--- NOTE | 2016-08-31 07:32 | NUR ---
TELE CORNCOB PIPES ASSEMBLER CLOSING NOTES PT AWAKE AND ALERT , NO CHEST PAIN AT THIS TIME, PLAYING CARDS ON HIS CELLPHONE. IVF STILL INFUSING. TELE SR WITH PVC'S . ENDORSE TO AM NURSE FOR CONTINUITY OF CARE.
--- NOTE | 2016-08-31 07:38 | NUR ---
FOLDER HAND NOTES PT IN BED, AWAKE, ALERT AND ORIENTED, NO COMPLAINT OF CHEST PAIN AT THIS TIME, RESPIRATIONS NORMAL, IV FLUIDS INFUSING WELL, PT FOR CT ANGIOGRAM TODAY, INFORMED OF PLAN OF CARE, VERBALIZED UNDERSTANDING, CALL LIGHT WITHIN REACH.
[2016-08-31] MEDS ORDERED: SECONDARY IV SET 1 EA INFUS.SET MC ONE (07:53)
[2016-08-31 08:00] VITALS: BP 141/89
[2016-08-31] MEDS: Magnesium 1GM/D5W 100ML PREMIX 100 ML IV SCH ×2 (08:05→09:12)
[2016-08-31] MEDS ORDERED: LISINOPRIL (10MG) 10 MG TABLET PO SCH (09:00)
[2016-08-31] MEDS ORDERED: ASPIRIN EC 81 MG TABLET.DR PO SCH (09:00)
[2016-08-31] MEDS ORDERED: ATORVASTATIN 10 MG TABLET PO SCH (09:00)
[2016-08-31] MEDS ORDERED: ASPIRIN 325 MG TABLET PO SCH (09:00)
[2016-08-31] MEDS ORDERED: ALPRAZOLAM 0.5 MG TABLET PO SCH (09:00)
[2016-08-31] MEDS ORDERED: MONTELUKAST SODIUM (10MG) 10 MG TABLET PO SCH (09:00)
[2016-08-31] MEDS ORDERED: IOHEXOL-350 100 ML VIAL IV ONE (10:19)
[2016-08-31] MEDS ORDERED: IV NS 0.9% 250 ML IV ONE (10:19)
[2016-08-31] MEDS ORDERED: CT SWABBABLE VALVE TRANS SET 1 EA INFUS.SET MC ONE (10:20)
[2016-08-31] MEDS ORDERED: Magnesium 1GM/D5W 100ML PREMIX 100 ML IV SCH (10:30)
[2016-08-31] MEDS ORDERED: METOPROLOL TARTRATE INJ 5 MG/5 ML AMPUL IVP ONE ×2 (10:30→10:40)
[2016-08-31] MEDS ORDERED: NITROGLYCERIN 4.9 GM SPRAY ONE (10:43)
[2016-08-31] MEDS: FLUTICASONE/SALMETEROL DISKUS IH SCH (12:27)
--- NOTE | 2016-08-31 12:30 | NUR ---
RN MS NOTES PT IN BED, AWAKE, ALERT AND ORIENTED, NO COMPLAINT OF PAIN, NOT IN DISTRESS, S/P CT ANGIO, TOLERATED WELL, PT REFUSED BP MEDS, PT RECEIVED BP MEDS DURING CT SCAN, TOLERATING CURRENT DIET WELL, DAUGHTER AT BEDSIDE, PLAN OF CARE PROVIDED, VERBALIZED UNDERSTANDING, NEEDS ATTENDED.
[2016-08-31] MEDS: INSULIN REGULAR, HUMAN 100 UNIT/ML 3 ML VIAL SQ PRN ×2 (12:40→17:05)
--- NOTE | 2016-08-31 15:00 | NUR ---
RN MS NOTES PT IN BED, RESTING, NO COMPLAINT OF PAIN, RESPIRATIONS NORMAL AND NOT LABORED, AMBULATES TO THE BATHROOM WITH STEADY GAIT, CALL LIGHT WITHIN REACH, NEEDS ATTENDED.
[2016-08-31 16:00] VITALS: BP 117/73
[2016-08-31] MEDS ORDERED: ENOX40DI SQ (17:50)
[2016-08-31] MEDS ORDERED: *INS REG SQ (17:50)
[2016-08-31] MEDS ORDERED: Aspirin PO (17:50)
[2016-08-31] MEDS ORDERED: CARV3.122 PO (17:51)
[2016-08-31] MEDS ORDERED: CARVEDILOL 3.125 MG TABLET PO SCH (17:53)
[2016-08-31 18:26] VITALS: BP 143/81
--- NOTE | 2016-08-31 18:46 | NUR ---
RN MS NOTES PT IN BED, AWAKE, ALERT AND ORIENTED, NO FURTHER COMPLAINT OF CHEST PAIN, NOT IN DISTRESS, AMBULATES WITH STEADY GAIT TO THE BATHROOM, PT FOR TRANSFER TO [facility] FOR CARDIAC CATH, PT AND FAMILY INFORMED, DISCHARGE INSTRUCTIONS PROVIDED, VERBALIZED UNDERSTANDING, BELONGINGS ACCOUNTED FOR, PM MEDS GIVEN ORDERED, ALL NEEDS ATTENDED.
--- NOTE | 2016-08-31 19:22 | NUR ---
RN MS NOTES REPORT GIVEN TO PING SCHENIDER OF [facility], AWAITING AMBULANCE TRANSPORT, SCHEDULED AT 1930, PT AND FAMILY INFORMED.
--- NOTE | 2016-08-31 19:35 | NUR ---
MS LINDSEY NOTES SEEN PT IN BED AWAKE AND ALERT READY FOR [employer] , DENIES ANY PAIN OR ANY DISCOMFORT. TUNE UP MECHANIC ARRIVED , GAVE REPORT AND ENDORSE THE COPY OF THE PT CHART . PATIENT STATED"THANK YOU CHAUNCEY FOR EVERYTHING " WITH SMILE ON HIS FACE. FAMILY AT THE BEDSIDE. AM NURSE GAVE REPORT TO THE NURSE FENG FROM [facility].
== END 2016-08-31 19:35 | disposition short-term general hospital (02) | DRG 203 ==
LOC: ER 11:47 → TELE 14:08 → MED 08-31 08:14
PROVIDERS: ADMIT Internal Medicine; ATTEND Internal Medicine
DX: M94.0 Chondrocostal junction syndrome [Tietze] (principal); N17.0 Acute kidney failure with tubular necrosis; I48.91 Unspecified atrial fibrillation; I11.9 Hypertensive heart disease without heart failure; E11.65 Type 2 diabetes mellitus with hyperglycemia; E86.0 Dehydration; E87.1 Hypo-osmolality and hyponatremia; F41.9 Anxiety disorder, unspecified; D72.829 Elevated white blood cell count, unspecified; E86.1 Hypovolemia; Z79.84 Long term (current) use of oral hypoglycemic drugs
CPT/HCPCS: 36415; 71010-TC; 75574; 80048-TC; 82962-TC; 83735-TC; 84100-TC; 84484-TC; 85025-TC; 85730-TC; 87081-TC; A4606; J1650; J1815; J3475; J3490; J7030; J7050; Q9967; Z7610